=== PATIENT | male | born 1945 | race Caucasian/White ===

== ENCOUNTER 2021-06-12 13:00 | Outpatient (CLI) | payer OTHER, SELFPAY ==
--- NOTE | 2021-06-12 13:12 | MR_ITS ---
WS: [id number] MRI HEAD WITHOUT CONTRAST TECHNIQUE: Sagittal T1, T2 axial, T2 axial FLAIR, axial and coronal T1 images, axial susceptibility w eighted imaging, axial diffusion weighted images, and coronal T2 images were obtained. CLINICAL INFORMATION: WORSENING HEADACHES COMPARISON: None. FINDINGS: No evidence of restricted diffusion to suggest acute ischemia. Ventricular system and basal cisterns are patent. Minimal small vessel changes. Moderate parenchymal volume loss. Normal posterior fossa. N ormal vascular flow voids at the skull base. No extra axial fluid collections. No evidence of mass or mass effect. Paranasal sinuses are well aerated with mild mucosal thickening. Mastoid air cells are well aerated. Tiny punctate focus of hemosiderin LEFT basal ganglia. Normal opt ic chiasm and pituitary infundibulum. No significant atrophy temporal lobes and hippocampal formation s. MR/MR head wo con* [id number] IMPRESSION: 1. No evidence of restricted diffusion to suggest acute ischemia. 2. Minimal small vessel changes. Mild parenchymal volume loss. 3. Normal temporal lobes and hippocampal formations. 4. Tiny focus of chronic hemosiderin in LEFT basal ganglia on the susceptibili ty weighted images. 5. Mild mucosal thickening paranasal sinuses. 6. No other significant findings.
== END 2021-06-12 13:01 | disposition home or self-care (01) ==
LOC: RAD 13:06
PROVIDERS: PCP Family Medicine; Visit Provider Family Medicine
DX: R51.9 Headache, unspecified (principal)
CPT/HCPCS: 70551

== ENCOUNTER 2022-10-23 07:37 | Outpatient (CLI) | payer OTHER, SELFPAY ==
--- NOTE | 2022-10-23 07:52 | USCV_ITS ---
Kenan Nolasco Age: 77 Gender: M : 1945 Exam Date: 10/23/2022 08:11 Ordering Phys: Jodi Dominguez MD Technologist: ALICE [place] [facility] [place]: Smoker x15+ years HISTORY: Diameter (cm) AP x Transverse x Length Velocity (cm/s) Waveform Prox Aorta: 1.58 x 1.77 x 80.10 Mid Aorta: 1.50 x 1.85 x 85.20 Distal Aorta: 1.52 x 1.85 x 104.00 Right Iliac Prox: 0.83 x 1.35 x 119.00 Left Iliac Prox: 0.92 x 1.29 x 104.10 Stent Prox Landing x x Aneurysmal Sac Max x x Lt Lat Sac Dim Rt Lat Sac Dim Stent Dist Landing x x Right Iliac Stent x x Left Iliac Stent x x Right Renal Art Left Renal Art FINDINGS: CONCLUSIONS No evidence of abdominal aortic or bilateral iliac aneurysm. Kian Barnard MD (Electronically Signed) Final Date: 23 October 2022 11:12 S
== END 2022-10-23 07:38 | disposition home or self-care (01) ==
LOC: RAD 07:38
PROVIDERS: PCP Family Medicine; Visit Provider Family Medicine
DX: Z87.891 Personal history of nicotine dependence (principal)
CPT/HCPCS: 76706

== ENCOUNTER 2023-07-14 08:40 | Emergency (ER) | payer OTHER, SELFPAY ==
[2023-07-14 08:44] VITALS: BP 139/85; PULSE 107; RESP 18; TEMP 37; O2SAT 92; BMI 29.5
--- NOTE | 2023-07-14 08:58 | ED_ITS ---
HPI - URI/Sore Throat General: Chief Complaint: Upper Respiratory Infection Stated Complaint: sob, weak, cough Time Seen by Provider: 07/14/23 08:58 Source: patient Mode of arrival: ambulatory Limitations: no limitations History of Present Illness: Patient is a nice 78-year-old male presents to ED today for concerns of possible pneumonia. He states over the past 2 days or so he has noticed dark yellow and green chest phlegm that he is coughing up. He states he is up every few hours or so coughing in the middle of the night. He feels somewhat short of breath. He states he had similar symptoms in the past and was diagnosed with pneumonia. Patient states he is not having chest pain at rest but does have some chest wall pain only when coughing. He reports low-grade fevers this morning of 100.4. Reports nasal/head congestion. Patient denies history of COPD or any other underlying lung abnormalities. He is a former smoker. PMH is significant only for diabetes. MD elicited complaint: cough Pertinent past history: pneumonia Onset (ago): day(s) Consistency: intermittent Severity: moderate Description of mucous: yellow and green Able to tolerate fluids by mouth: Yes Exacerbating factors: other (coughing) Relieving factors: nothing Associated symptoms: Reports chest pain (reports chest wall pain only when coughing) and fever(s) (low grade this AM-100.4); Deny abdominal pain, chills, diarrhea, ear or mastoid pain, headache(s), nasal congestion, nausea, sinus pain or vomiting Treatments prior to arrival: none Review of Systems Const: Reports: fever(s) (low grade this AM-100.4); Denies: chills, body aches, fatigue or malaise Eyes: Denies: change in vision, blurry vision or photophobia ENMT: Denies: throat pain, odynophagia, ear or mastoid pain, nasal discharge, nasal congestion or sinus pain Card: Reports: chest pain (reports chest wall pain only when coughing); Denies: palpitations, irregular heart rhythm, edema, swelling of feet/ankles, lightheadedness, syncope or pre-syncope Resp: Reports: dyspnea, productive cough, change in phlegm color and chest congestion; Denies: wheezing or hemoptysis GI: Denies: abdominal pain, nausea, vomiting or diarrhea Musc: Denies: neck pain, back pain, extremity pain or joint pain Skin/Breast: Denies: rash Neuro: Denies: headache(s), numbness in extremities, weakness in extremities, sensory changes or dizziness PFSH ED PFSH: Medical History HTN (hypertension) Hyperlipidemia Diabetes Surgical History No pertinent past surgical history Social History Smoking and tobacco/nicotine status: former use of tobacco/nicotine Physical Exam Const: COMMON NORMALS: no acute distress, average body habitus, patient oriented x3, no limitations, healthy appearing, alert and well nourished GENERAL APPEARANCE: cooperative ORIENTATION/CONSCIOUSNESS: Yes awake, Yes oriented to person, Yes oriented to place and Yes oriented to time HENMT: COMMON NORMALS: normocephalic and atraumatic HEAD & SCALP: normal to inspection, normocephalic and atraumatic FACE & SINUS: normal facial exam Neck/C-Spine: COMMON NORMALS: full ROM, no lymphadenopathy, supple, no meningeal signs and no JVD Chest: COMMONS NORMALS: normal inspection of the chest and normal palpation of entire chest wall Resp: COMMON NORMALS: normal respiratory effort AUSCULTATION: crackles Laterality: bilateral (lung bases) Cardio: COMMON NORMALS: no JVD, regular rate and regular rhythm RATE: regular rate RHYTHM: regular rhythm Extremity: COMMON NORMALS: normal to inspection, no clubbing, cyanosis or edema, no calf tenderness and no pedal edema GENERAL: Yes normal exam except as noted Neuro: ABIOLA COMA SCALE: document GCS findings Abiola coma scale eye opening: Spontaneous Abiola coma scale verbal response: Orientated Abiola coma scale motor response: Obey commands Abiola coma scale total score: 15 COMMON NORMALS: patient oriented x3 SENSORIUM/ORIENTATION: Yes alert, Yes oriented to person, Yes oriented to place and Yes oriented to time MENINGEAL SIGNS: Yes no meningeal signs Skin: COMMON NORMALS: no rashes or lesions noted GENERAL SKIN EXAM: no rashes or lesions noted Course Vital Signs: Vital signs: Vital Signs Temperature 98.6 F 07/14/23 08:44 Pulse Rate 107 H 07/14/23 08:44 Respiratory Rate 18 07/14/23 08:44 Blood Pressure 139/85 07/14/23 08:44 Pulse Oximetry 92 07/14/23 08:44 Oxygen Delivery Me thod Room Air 07/14/23 08:44 MDM - URI/Sore Throat Medical Decision Making Patient will be covered with antibiotics/steroids. He is asking for something to help with his head congestion . He has tried [id number] Mucinex. Will place him on Sudafed. Return to ED precautions given. Differential Diagnosis Likely upper respiratory infection, sinusitis, viral infection, bronchitis and pharyngitis Medical Records I reviewed the patient's medical records. Lab Data Radiology Impressions Chest X-Ray 07/14/23 09:05 IMPRESSION: Low lung volumes versus mild pulmonary congestion. XR interpretation done by ED provider, pending radiology final review Discharge Plan Discharge Patient Disposition: Home Clinical Impression: Bronchitis Condition: Stable Prescriptions: New prednisone 10 mg tablet 10 mg PO DAILY 6 Days Qty: 20 0RF Rx Instructions: Take 5 tabs on day 1-2, 4 tabs on day 3, 3 tabs on day 4, 2 tabs on day 5, and 1 tab on day 6 levofloxacin 500 mg tablet 500 mg PO DAILY 7 Days Qty: 7 0RF Sudafed 30 mg tablet 30 mg PO Q6H PRN (Reason: nasal congestion) Qty: 14 0RF No Action metformin 1,000 mg tablet 1,000 mg PO BID Lantus U-100 Insulin 100 unit/mL solution 50 unit SUBCUT BID insulin aspart U-100 [Novolog PenFill U-100 Insulin] 100 unit/mL cartridge 10 unit SUBCUT TID simvastatin 20 mg tablet 10 mg PO DAILY Aspir-81 81 mg Tablet,Delayed Release (Dr/Ec) 81 mg PO DAILY lisinopril 10 mg Tablet 10 mg PO DAILY Ocuvite Adult 50 Plus 250 mg (90 mg-160 mg) Capsule 1 cap PO DAILY Discharge Orders: Discharge ED (Routine); Ordered 07/14/23 Ordered By: Chiquita Christine Referrals: Jodi Dominguez MD [Primary Care Provider] - Patient Instructions: Bronchitis (Acute) - Adult, Acute Bronchitis (ED) Coding Level of Care Code ED Chainstitch Pants Outseamer for Lidia Robertson
--- NOTE | 2023-07-14 09:05 | XRR_ITS ---
PROCEDURE INFORMATION: Exam: XR Chest Exam date and time: 07/14/2023 9:25 AM Age: 78 years old Clinical indication: Cough; Additional info: Cough/congestion TECHNIQUE: Imaging protocol: Radiologic exam of the chest. Views: 1 view. COMPARISON: No relevant prior studies available. FINDINGS: Lungs: Mildly increased lung markings, which may be secondary to low lung volumes or mild pulmonary congestion. Pleural spaces: Unremarkable. No pleural effusion. No pneumothorax. Heart/Mediastinum: Unremarkable. No cardiomegaly. Bones/joints: Degenerative changes of the spine and shoulder joints seen. Bilateral rotator cuff repair changes noted. XR/XR chest 1V portable [id number] IMPRESSION: Low lung volumes versus mild pulmonary congestion.
[2023-07-14 11:14] LABS: Adenovirus Not Detected (NOT DETECT); Chlamydia Pneumoniae Not Detected (NOT DETECT); Coronavirus 229E,HKU1,NL63,OC4 Not Detected (NOT DETECT); Human Metapneumovirus Not Detected (NOT DETECT); Human Rhinovirus/Enterovirus Not Detected (NOT DETECT); Influenza A Not Detected (NOT DETECT); Influenza A H1 Not Detected (NOT DETECT); Influenza A H1-2009 Not Detected (NOT DETECT); Influenza A H3 Not Detected (NOT DETECT); Influenza B Not Detected (NOT DETECT); Mycoplasma Pneumoniae Not Detected (NOT DETECT); Parainfluenza Virus Type 1 Not Detected (NOT DETECT); Parainfluenza Virus Type 2 Not Detected (NOT DETECT); Parainfluenza Virus Type 3 Not Detected (NOT DETECT); Parainfluenza Virus Type 4 Not Detected (NOT DETECT); Respiratory Syncytial Virus A Not Detected (NOT DETECT); Respiratory Syncytial Virus B Not Detected (NOT DETECT); SARS-COV-2 Not Detected (NOT DETECT)
== END 2023-07-14 09:55 | disposition home or self-care (01) ==
PROVIDERS: Emergency Provider Physician Assistant; PCP Family Medicine
DX: J40 Bronchitis, not specified as acute or chronic (principal); Z79.82 Long term (current) use of aspirin; Z79.4 Long term (current) use of insulin; Z79.84 Long term (current) use of oral hypoglycemic drugs; I10 Essential (primary) hypertension; E78.5 Hyperlipidemia, unspecified; E11.9 Type 2 diabetes mellitus without complications; Z87.891 Personal history of nicotine dependence
CPT/HCPCS: 71045; 87486; 87581; 87633; 99284

== ENCOUNTER → 2023-07-25 11:47 | Outpatient (BNVA) | payer OTHER, SELFPAY | PROVIDERS: PCP Family Medicine; Visit Provider Nurse Practitioner Family | DX: L57.0 Actinic keratosis (principal); L27.0 Generalized skin eruption due to drugs and medicaments taken internally; L85.3 Xerosis cutis; L57.8 Other skin changes due to chronic exposure to nonionizing radiation; M15.1 Heberden's nodes (with arthropathy); D22.61 Melanocytic nevi of right upper limb, including shoulder; L81.4 Other melanin hyperpigmentation; L82.1 Other seborrheic keratosis | CPT/HCPCS: 17000; 99213 ==

== ENCOUNTER 2023-08-21 08:18 | Outpatient (CLI) | payer OTHER, SELFPAY ==
--- NOTE | 2023-08-21 08:23 | CT_ITS ---
WS: [id number] CT FACIAL BONES HISTORY: CHRONIC SINUSI SYMPTOMS TECHNIQUE: Images obtained from the supraorbital location through the mandible. Soft tissue and bone windows are reviewed. Coronal and sagittal reformats have also been submitted. DLP: 543.[address] scans at [facility] use at least one of these dose optimization techniques: automated e xposure control; mA and/or kV adjustment per patient size (includes targeted exams where dose is matc hed to clinical indication); or iterative reconstruction. COMPARISON: None available. No facial bone fractures are identified. No destructive bone lesions. Nasal bones and zygomatic arche s are normal. Mild mucoperiosteal thickening in the RIGHT maxillary sinus. There are no air-fluid levels. Oropharyn geal structures are normal. Mastoid air cells are clear. Orbits and globes are negative. IMPRESSION: 1. No facial bone fracture. 2. No evidence for acute sinusitis. Minimal mucoperiosteal thickening in the RIGHT maxillary sinus.
== END 2023-08-21 08:19 | disposition home or self-care (01) ==
LOC: RAD 08:19
PROVIDERS: PCP Family Medicine; Visit Provider Family Medicine
DX: J34.89 Other specified disorders of nose and nasal sinuses (principal)
CPT/HCPCS: 70486

== ENCOUNTER → 2024-08-16 07:57 | Outpatient (BNVA) | payer OTHER, SELFPAY | PROVIDERS: PCP Family Medicine; Visit Provider Nurse Practitioner Family | DX: S60.052A Contusion of left little finger without damage to nail, initial encounter (principal); M15.1 Heberden's nodes (with arthropathy); L57.8 Other skin changes due to chronic exposure to nonionizing radiation; X32.XXXA Exposure to sunlight, initial encounter; L57.0 Actinic keratosis; L81.4 Other melanin hyperpigmentation; L82.0 Inflamed seborrheic keratosis; R20.9 Unspecified disturbances of skin sensation; R20.8 Other disturbances of skin sensation; L29.89 Other pruritus; L53.8 Other specified erythematous conditions; X58.XXXA Exposure to other specified factors, initial encounter | CPT/HCPCS: 17000; 17110; 99213 ==

== ENCOUNTER 2024-08-31 11:16 | Emergency (ER) | payer OTHER, SELFPAY ==
[2024-08-31 11:20] VITALS: BP 144/70; PULSE 68; RESP 16; TEMP 36.4; O2SAT 95
--- NOTE | 2024-08-31 11:25 | XRR_ITS ---
PROCEDURE INFORMATION: Exam: XR Chest Exam date and time: 08/31/2024 11:26 AM Age: 79 years old Clinical indication: Shortness of breath TECHNIQUE: Imaging protocol: Radiologic exam of the chest. Views: 1 view. COMPARISON: CR XR chest 1V portable [id number] 07/14/2023 9:25 AM FINDINGS: Lungs: The pulmonary vessels are within normal limits. The lungs are clear. Pleural spaces: No pneumothorax. Heart/Mediastinum: The cardiomediastinal silhouette is within normal limits. Bones/joints: Bilateral shoulder surgical changes are seen. XR/XR chest 1V portable [id number] IMPRESSION: No acute pulmonary finding.
--- NOTE | 2024-08-31 11:30 | ECG_ITS ---
[facility] Test Date: 2024-08-31 Pat Name: Kenan Nolasco Department: Room: Gender: Male Collator: : 1945 Requested By: Gracy Roche Order Number: [id number] Reading MD: Measurements Intervals [place] Rate: 64 P: 57 MA: 192 QRS: 23 QRSD: 92 T: 48 QT: 360 QTc: 374 Interpretive Statements SINUS RHYTHM [email or web address]
--- NOTE | 2024-08-31 11:37 | W.ED.RECABL ---
HPI - Recheck/Abnormal Lab/Rx General: Chief Complaint: Recheck/Abnormal Lab/Rx Stated Complaint: low O2, va sent Time Seen by Provider: 08/31/24 11:30 History of Present Illness: 79-year-old man with a history of hypertension and diabetes who presents to the emergency room from the [place] with concerns for shortness of breath and ambulatory hypoxemia. 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 He says that the [place] doctor walked him around the clinic and his oxygen saturations dropped into the 80s. So she sent him to the emergency room. He has no history of COPD. No heart disease. No heart failure. He has never required oxygen before. His O2 sats are in the mid 90s on presentation to the emergency room. Related Data Home Medications ?Medication ?Instructions ?Recorded ?Confirmed insulin aspart U-100 100 unit/mL 10 unit SUBCUT TID 06/18/21 08/31/24 subcutaneous cartridge (Novolog PenFill U-100 Insulin aspart) insulin glargine 100 unit/mL 50 unit SUBCUT BID 06/18/21 08/31/24 subcutaneous solution (Lantus U-100 Insulin) metformin 1,000 mg tablet 1,000 mg PO BID 06/18/21 08/31/24 aspirin 81 mg tablet,delayed 81 mg PO DAILY 07/14/23 08/31/24 release lisinopril 10 mg tablet 10 mg PO DAILY 07/14/23 08/31/24 [id number] 250 mg-dha 90 1 cap PO DAILY 07/14/23 08/31/24 mg-epa 160 [id number] capsule (Ocuvite Adult 50 Plus) simvastatin 40 mg tablet 40 mg PO DAILY 08/31/24 08/31/24 Allergies Allergy/AdvReac Type Severity Reaction Status Date / Time No Known Allergies Allergy Verified 07/14/23 09:29 Review of Systems Narrative: Constitutional symptoms: Negative except as documented in HPI. Skin symptoms: Negative except as documented in HPI. Eye symptoms: Negative except as documented in HPI. ENMT symptoms: Negative except as documented in HPI. Respiratory symptoms: Negative except as documented in HPI. Cardiovascular symptoms: Negative except as documented in HPI. Gastrointestinal symptoms: Negative except as documented in HPI. Genitourinary symptoms: Negative except as documented in HPI. Musculoskeletal symptoms: Negative except as documented in HPI. Neurologic symptoms: Negative except as documented in HPI. Psychiatric symptoms: Negative except as documented in HPI. Endocrine symptoms: Negative except as documented in HPI. [facility] ED PFSH: Medical History HTN (hypertension) Hyperlipidemia Diabetes Surgical History No pertinent past surgical history Social History Smoking and tobacco/nicotine status: former use of tobacco/nicotine Physical Exam Narrative: EXAM NARRATIVE: General: Alert, no acute distress. Skin: Warm, dry. Head: Normocephalic, atraumatic. Neck: Supple, trachea midline. Eye: Extraocular movements are intact. Ears, nose, mouth and throat: mucosa moist. Cardiovascular: Regular, Normal peripheral perfusion. Respiratory: Lungs are clear to auscultation, respirations are non-labored, breath sounds are equal, Symmetrical chest wall expansion. Gastrointestinal: Soft, Nontender, Non distended Musculoskeletal: Normal ROM, no deformity. Neurological: Alert and oriented, No focal neurological deficit observed. Psychiatric: Cooperative, appropriate mood & affect. Course Vital Signs: Vital signs: Vital Signs Temperature 97.5 F L 08/31/24 11:20 Pulse Rate 66 08/31/24 13:00 Respiratory Rate 16 08/31/24 11:20 Blood Pressure 103/48 08/31/24 13:00 Pulse Oximetry 95 08/31/24 13:34 Oxygen Delivery Me thod Room Air 08/31/24 13:00 MDM - Recheck/Abnormal Lab/Rx Medical Decision Making Differential diagnosis for patient with shortness of breath includes but is not limited to and based on the above HPI, review of systems and physical exam: Pneumonia. Bronchitis. Asthma or COPD with acute exacerbation. Acute coronary syndrome / TN. Pulmonary embolism. Anxiety. Congestive heart failure. Viral infections including influenza and Covid-19. Atrial fibrillation. Anxiety. Pleural effusion. Pneumothorax. Orders placed to evaluate differential diagnosis based on the above differential, HPI and physical exam EKG: Time 11:30 AM. Rate 64. Normal sinus rhythm, No ST-T changes, no ectopy, normal [place] & QRS intervals, This was reviewed and interpreted by myself the ER physician at 11:32 AM Chest x-ray: Poor inspiratory effort, but I do not see any infiltrates or effusions. No pneumothorax. This was reviewed and interpreted by myself the emergency room physician. I also reviewed the radiology report. AB.3 with an O2 sat of 97% on room air. Does not qualify for oxygen per ABG. Ambulatory pulse ox: Patient did not drop below 95% while ambulatory. Lab Review: Laboratory results were reviewed and interpreted by myself the emergency room physician. No leukocytosis. No anemia. BUN slightly elevated and glucose is slightly elevated. proBNP is normal. Serial troponins are negative. I reviewed the patient's medical record. Reexamination: Patient remained stable. No increased work of breathing. No altered mental status. No focal motor deficits. Assessment and plan: Episodes of shortness of breath Hyperglycemia - Discharged home - Discussed plan with patient. Answered any questions. - Evaluation and treatment of this problem were appropriate in the emergency setting. Lab Data 08/31/24 11:42 08/31/24 11:42 Radiology Impressions Chest X-Ray 08/31/24 11:25 IMPRESSION: No acute pulmonary finding. Laboratory Results WBC 8.62 10^3/uL (3.29-11.43) 08/31/24 11:42 RBC 4.90 10^6/uL (3.85-5.65) 08/31/24 11:42 Hgb 15.00 g/dL (11.27-16.99) 08/31/24 11:42 Hct 44.6 % (37-53) 08/31/24 11:42 MCV 91.0 fl (82-101) 08/31/24 11:42 MCH 30.6 pg (27-33) 08/31/24 11:42 MCHC 33.6 g/dL (30-55) 08/31/24 11:42 RDW 12.9 % (12.1-15.1) 08/31/24 11:42 Plt Count 209 10^3/cmm (157-399) 08/31/24 11:42 MPV 10.4 fL (7.4-10.4) 08/31/24 11:42 Neut % (Auto) 48.9 % 08/31/24 11:42 Lymph % (Auto) 30.3 % 08/31/24 11:42 Parmer % (Auto) 10.4 % 08/31/24 11:42 Eos % (Auto) 9.5 % 08/31/24 11:42 Baso % (Auto) 0.7 % 08/31/24 11:42 Neut # (Auto) 4.21 10^3/uL (1.8-7.7) 08/31/24 11:42 Lymph # (Auto) 2.6 10^3/uL (0.8-4.8) 08/31/24 11:42 Parmer # (Auto) 0.9 10^3/uL (0.2-0.9) 08/31/24 11:42 Eos # (Auto) 0.8 10^3/uL (0.0-0.8) 08/31/24 11:42 Baso # (Auto) 0.1 10^3/uL (0.0-0.1) 08/31/24 11:42 Nucleated RBC % (auto) 0 % 08/31/24 11:42 Nucleated RBCs # 0.0 /100WBC 08/31/24 11:42 Specimen Type Arterial 08/31/24 11:30 Sample Site Radial, left 08/31/24 11:30 ABG pH 7.36 (7.35-7.45) 08/31/24 11:30 ABG pCO2 38.8 mmHg (35-45) 08/31/24 11:30 ABG pO2 82.9 mmHg (80.0-100.0) 08/31/24 11:30 ABG PO2/FiO2 Ratio 394 08/31/24 11:30 ABG HCO3 21.8 mmol/L (22-26) L 08/31/24 11:30 ABG Base Excess -3.3 mmol/L (-2.0-2.0) L 08/31/24 11:30 Venk[place]a Test Pos 08/31/24 11:30 Hematocrit 46.0 % (42-52) 08/31/24 11:30 Hgb O2 Saturation 97.3 % (95-100) 08/31/24 11:30 Carboxyhemoglobin 0.6 %THgb (0.4-20.1) 08/31/24 11:30 Methemoglobin < 0.0 % (0.4-1.5) L 08/31/24 11:30 Total Hemoglobin 15.0 g/dL (14-18) 08/31/24 11:30 O2 Delivery Device Room air 08/31/24 11:30 FiO2 21.0 % 08/31/24 11:30 Substation Mechanic ID Toni 08/31/24 11:30 Sodium 135 mmol/L (136-145) L 08/31/24 11:42 Potassium 4.9 mmol/L (3.5-5.1) 08/31/24 11:42 Chloride 100 mmol/L (98-107) 08/31/24 11:42 Carbon Dioxide 22 mmol/L (22-29) 08/31/24 11:42 Anion Gap 17.9 (5-19) 08/31/24 11:42 BUN 24 mg/dL (8-23) H 08/31/24 11:42 Creatinine 1.1 mg/dL (0.7-1.2) 08/31/24 11:42 GFR Calculation Not Reportable 08/31/24 11:42 Glucose 328 mg/dL (65-115) H 08/31/24 11:42 Calculated Osmolality 297 mOsm/kg (285-295) H 08/31/24 11:42 Lactic Acid 2.9 mmol/L (0.5-2.2) H 08/31/24 11:42 Calcium 9.3 mg/dL (8.5-10.5) 08/31/24 11:42 Total Bilirubin 0.4 mg/dL (0.15-1.2) 08/31/24 11:42 AST 24 U/L (0-40) 08/31/24 11:42 ALT 16 U/L (0-41) 08/31/24 11:42 Alkaline Phosphatase 52 U/L (40-130) 08/31/24 11:42 Troponin T Baseline 9 ng/L (0-15) 08/31/24 11:42 Troponin T 120 Minute 7.92 ng/L (0-15) 08/31/24 13:31 Delta Troponin T -1.08 ABS# (0-10) L 08/31/24 13:31 NT-Pro-B Natriuret Pep < 36 pg/mL (0-450) 08/31/24 11:42 Total Protein 6.4 g/dL (6.6-8.7) L 08/31/24 11:42 Albumin 4.3 g/dL (3.5-5.2) 08/31/24 11:42 Globulin 2.1 g/dL (1.3-4.6) 08/31/24 11:42 Influenza A (PCR) Negative (Negative) 08/31/24 12:00 Influenza Type B (PCR) Negative (Negative) 08/31/24 12:00 RSV (PCR) Negative (Negative) 08/31/24 12:00 SARS-CoV-2 (PCR) Negative (Negative) 08/31/24 12:00 All radiology interpretation(s) finalized by discharge Discharge Plan Discharge Patient Disposition: Home Clinical Impression: Shortness of breath, Hyperglycemia Condition: Stable Prescriptions: No Action metformin 1,000 mg tablet 1,000 mg PO BID Lantus U-100 Insulin 100 unit/mL solution 50 unit SUBCUT BID insulin aspart U-100 [Novolog PenFill U-100 Insulin] 100 unit/mL cartridge 10 unit SUBCUT TID aspirin [Aspir-81] 81 mg Tablet,Delayed Release (Dr/Ec) 81 mg PO DAILY lisinopril 10 mg Tablet 10 mg PO DAILY Ocuvite Adult 50 Plus 250 mg (90 mg-160 mg) Capsule 1 cap PO DAILY simvastatin 40 mg Tablet 40 mg PO DAILY Discharge Orders: Discharge ED (Routine); Ordered 08/31/24 Ordered By: Gracy Boyer Referrals: Jodi Dominguez MD [Primary Care Provider] - Discharge Diet: Usual diet Discharge Activity: Increase activity as tolerated Patient Instructions: Shortness of Breath (ED), Opioid Safety, Pain Management Activity Restrictions/Additional Instructions: You need to return to your primary physician to discuss the findings that were obtained here. Also you need to discuss that your sugar was over 300 while you are here. She may need to adjust your diabetes medications. Thank you for choosing [facility] for your healthcare needs today. You have been screened and evaluated and felt safe for discharge. Health conditions do change or evolve sometimes and as such it is important that you follow up with your Primary Doctor to be re checked, 3-5 days is a general good time frame for follow up. You are always welcome to return to the ED for re assessment if your symptoms are worsening or you have new concerns Print Language: Vietnamese Coding Level of Care Code ED Assistant Field Hockey Coach for Lidia Robertson
[2024-08-31 11:41] LABS: ABG PCO2 38.8 mmHg (35-45); ABG PH Result 7.36 (7.35-7.45); Base Excess ABG -3.3 mmol/L (-2.0-2.0); Blood Gas Allen Test Pos; Blood Gas Operator Identificat WALCI; Blood Gas Sample Site Radial, left; Blood Gas Sample Type Arterial; Carboxyhemoglobin 0.6 %THgb (0.4-20.1); HCO3 ABG 21.8 mmol/L (22-26); HGB O2 Sat 97.3 % (95-100); Methemoglobin < 0.0 % (0.4-1.5); Oxygen Device ROOM AIR; PO2 ABG 82.9 mmHg (80.0-100.0); PO2 FiO2 Ratio Arterial Blood 394
[2024-08-31 11:52] LABS: Basophils # 0.1 10^3/uL (0.0-0.1); Basophils % 0.7 %; Eosinophils # 0.8 10^3/uL (0.0-0.8); Eosinophils % 9.5 %; Hematocrit 44.6 % (37-53); Lymphocytes # 2.6 10^3/uL (0.8-4.8); Lymphocytes % 30.3 %; Mean Corpuscular HGB Conc 33.6 g/dL (30-55); Mean Corpuscular Hemoglobin 30.6 pg (27-33); Mean Platelet Volume 10.4 fL (7.4-10.4); Monocytes # 0.9 10^3/uL (0.2-0.9); Monocytes % 10.4 %; Neutrophils # 4.21 10^3/uL (1.8-7.7); Neutrophils % 48.9 %; Nucleated Red Blood Cells % 0 %; Platelet Count 209 10^3/cmm (157-399); Red Cell Distribution Width 12.9 % (12.1-15.1); White Blood Count 8.62 10^3/uL (3.29-11.43)
[2024-08-31 12:11] VITALS: BP 113/72; PULSE 67; O2SAT 94
[2024-08-31 12:14] LABS: Lactic Sepsis W/Reflex 2.9 mmol/L (0.5-2.2); Troponin(5th) Baseline 9 ng/L (0-15)
[2024-08-31 12:24] LABS: Alanine Aminotransferase 16 U/L (0-41); Albumin Level 4.3 g/dL (3.5-5.2); Alkaline Phosphatase 52 U/L (40-130); Anion Gap 17.9 (5-19); Aspartate Amino Transferase 24 U/L (0-40); Blood Urea Nitrogen 24 mg/dL (8-23); Calcium 9.3 mg/dL (8.5-10.5); Carbon Dioxide 22 mmol/L (22-29); Chloride 100 mmol/L (98-107); Globulin 2.1 g/dL (1.3-4.6); Glucose 328 mg/dL (65-115); NT Pro B Type Natriuretic Pept < 36 pg/mL (0-450); Osmolality Calculated 297 mOsm/kg (285-295); Potassium 4.9 mmol/L (3.5-5.1); Sodium 135 mmol/L (136-145); Total Bilirubin 0.4 mg/dL (0.15-1.2); Total Protein 6.4 g/dL (6.6-8.7)
[2024-08-31 12:30] VITALS: BP 113/72; PULSE 63; O2SAT 94
[2024-08-31 13:00] VITALS: BP 103/48; PULSE 66; O2SAT 93
--- NOTE | 2024-08-31 13:03 | ECG_ITS ---
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
[2024-08-31 13:34] VITALS: O2SAT 92; O2SAT 95
[2024-08-31 13:37] LABS: Reflex Lactate Order REFLEX LACTIC ORDERD
[2024-08-31 13:44] LABS: Influenza A NEGATIVE (Negative); Influenza B NEGATIVE (Negative); Respiratory Syncytial Virus Ce NEGATIVE (Negative); SARS-CoV-2 PCR NEGATIVE (Negative)
[2024-08-31 13:51] LABS: Troponin 5 2HR 7.92 ng/L (0-15)
[2024-08-31 14:02] LABS: Troponin 5 2HR Delta -1.08 ABS# (0-10)
[2024-08-31 14:17] VITALS: BP 116/60; PULSE 62; O2SAT 95
== END 2024-08-31 14:18 | disposition home or self-care (01) ==
PROVIDERS: Emergency Provider Emergency Medicine; PCP Family Medicine
DX: R06.02 Shortness of breath (principal); E11.65 Type 2 diabetes mellitus with hyperglycemia; I10 Essential (primary) hypertension; E78.5 Hyperlipidemia, unspecified; Z11.52 Encounter for screening for COVID-19; Z79.4 Long term (current) use of insulin; Z79.82 Long term (current) use of aspirin; Z87.891 Personal history of nicotine dependence
CPT/HCPCS: 36415; 36600; 71045; 80053; 82805; 83605; 83880; 84484; 85025; 87040; 87637; 93005; 94760; 99285